=== PATIENT | male | born 1955 | race Caucasian/White ===

== ENCOUNTER 2016-10-05 08:18 | Emergency (ER) | payer BC ==
[2016-10-05 08:41] VITALS: BP 108/69
--- NOTE | 2016-10-05 08:44 | UC ---
Minor Trauma HPI - History of Current Complaint Chief Complaint: UCUpperExtremity Stated Complaint: LEFT HAND/RIGHT LEG INJURY FROM FALL 10/04 Time Seen by Provider: 10/05/16 08:37 Hx Obtained From: Patient Onset/Duration: Sudden Onset - fell off a step ladder trimming a tree. 4:30 PM yesterday, Still Present Onset Of Pain: Immediate Severity Initially: Moderate Severity Currently: Moderate Mechanism Of Injury: Blunt Trauma, Fall From Height Of: - 3 feet on a ladder Aggravating Factor(s): Movement Alleviating Factor(s): Nothing Associated Signs And Symptoms: Negative: Loss Of Consciousness, Ecchymosis, Swelling - Risk Factors Penetrating Injury Risk Factors: Negative Compartment Syndrome Risk Factors: Pain - Allergies/Home Medications Allergies/Adverse Reactions: Allergies Allergy/AdvReac Type Severity Reaction Status Date / Time No Known Allergies Allergy Verified 10/05/16 08:28 PMH/Surg Hx/FS Hx/Imm Hx Endocrine History: Dyslipidemia Cardiovascular History: Hypertension - Surgical History Surgical History: Yes Surgery Procedure, Year, and Place: compound fx left arm. rotator cuff right shoulder. hernia repair. tonsillectomy - Family History Known Family History: Positive: Hypertension Negative: Cardiac Disease, Diabetes - Social History Occupation: Employed Full-time Lives: With Family Alcohol Use: Occasionally Alcohol Amount: few days a week Substance Use Type: None Smoking Status (MU): Never Smoked Tobacco - Immunization History Most Recent Tetanus Shot: <10 years Review of Systems Musculoskeletal: Arthralgia - left thumb All Other Systems Reviewed And Are Negative: Yes Physical Exam Triage Information Reviewed: Yes Appearance: Well-Appearing, No Pain Distress, Well-Nourished Vital Signs: Initial Vital Signs Temp 97.6 F 10/05/16 08:29 Pulse 60 10/05/16 08:29 Resp 18 10/05/16 08:29 BP 108/69 10/05/16 08:29 Pulse Ox 99 10/05/16 08:29 Vital Signs Reviewed: Yes Eyes: Positive: Conjunctiva Clear Neck exam: Normal Respiratory Exam: Normal Cardiovascular Exam: Normal Musculoskeletal: Positive: ROM Limited @ - left MCP with tenderness. Neurological Exam: Normal Psychological Exam: Normal Skin: Positive: Other - abrasion on the right lateral lower leg and right anterior neck Minor Trauma Course/Dx - Differential Dx/Diagnosis Differential Diagnosis/HQI/PQRI: Abrasion(s), Contusion(s), Sprain Provider Diagnoses: Left thumb sprain. Abrasion Discharge - Discharge Plan Condition: Stable Disposition: HOME Patient Education Materials: Finger Sprain (ED), Abrasion (ED)
--- NOTE | 2016-10-05 09:33 | RAD ---
Indication: Thumb injury. 3 views of left thumb demonstrates no fracture. There may be some degenerative changes of the distal interphalangeal joint. IMPRESSION: No fracture of the thumb is present.
== END 2016-10-05 09:13 | disposition home or self-care (01) ==
LOC: UCCORT 08:18
DX: S10.91XA Abrasion of unspecified part of neck, initial encounter (principal); S63.602A Unspecified sprain of left thumb, initial encounter; W11.XXXA Fall on and from ladder, initial encounter; Y93.9 Activity, unspecified; Y92.9 Unspecified place or not applicable; Y99.9 Unspecified external cause status; E78.5 Hyperlipidemia, unspecified; I10 Essential (primary) hypertension
CPT/HCPCS: 99211; G0463

== ENCOUNTER 2017-03-08 12:25 | Emergency (ER) | payer BC ==
[2017-03-08 13:02] VITALS: BP 111/75
--- NOTE | 2017-03-08 14:04 | UC ---
Skin Complaint HPI - HPI Summary HPI Summary: boil noted in left groin area for a few days. tender to touch but no insect bite or injury to that area. no drainage present at this time. - History of Current Complaint Chief Complaint: UCSkin Time Seen by Provider: 03/08/17 13:57 Stated Complaint: SKIN COMPLAINT ON HIP Hx Obtained From: Patient Onset/Duration: Sudden Onset, Lasting Days Onset Severity: Mild Current Severity: Mild Location: Other - left groin Aggravating Factor(s): Clothing Alleviating Factor(s): Nothing Associated Signs & Symptoms: Positive: Negative - ? insect bite doesnt know/ remember being bit - Allergy/Home Medications Allergies/Adverse Reactions: Allergies Allergy/AdvReac Type Severity Reaction Status Date / Time No Known Allergies Allergy Verified 03/08/17 12:55 Review of Systems Constitutional: Negative Skin: Other - boil in left groin Eyes: Negative ENT: Negative Respiratory: Negative Cardiovascular: Negative Gastrointestinal: Negative Genitourinary: Negative Is Patient Immunocompromised?: No All Other Systems Reviewed And Are Negative: Yes PMH/Surg Hx/FS Hx/Imm Hx Previously Healthy: Yes Endocrine History: Dyslipidemia Cardiovascular History: Hypertension - Surgical History Surgical History: Yes Surgery Procedure, Year, and Place: compoun fx left arm. rotator cuff left shoulder. hernia repair. tonsillectomy - Family History Known Family History: Positive: Hypertension Negative: Cardiac Disease, Diabetes - Social History Alcohol Use: Occasionally Alcohol Amount: few days a week Substance Use Type: None Smoking Status (MU): Never Smoked Tobacco - Immunization History Most Recent Influenza Vaccination: 2017 Most Recent Tetanus Shot: <10 years Physical Exam Triage Information Reviewed: Yes Appearance: Well-Appearing Vital Signs: Initial Vital Signs Temp 97.8 F 03/08/17 12:56 Pulse 69 03/08/17 12:56 Resp 16 03/08/17 12:56 BP 111/75 03/08/17 12:56 Pulse Ox 96 03/08/17 12:56 Vital Signs Reviewed: Yes Respiratory Exam: Normal Skin Exam: Other - left groin boil present tender to touch no drainage present, redness around area but no warmth to skin there Course/Dx - Course Course Of Treatment: warm compress to left groin prn - to help bring boil to a head/ inflammation. monitor area and if boil gets bigger - starts draining, area getting infected - discussed s/sx's. f/u pcp in 1 week if symptoms not resolving - Diagnoses Provider Diagnoses: boil Discharge - Discharge Plan Condition: Good Disposition: HOME Patient Education Materials: Furunculosis and Carbunculosis (ED) Referrals: Sherif Winter MD [Primary Care Provider] - 1 Week
== END 2017-03-08 14:25 | disposition home or self-care (01) ==
LOC: UCCORT 12:25
DX: L02.224 Furuncle of groin (principal); I10 Essential (primary) hypertension; E78.5 Hyperlipidemia, unspecified
CPT/HCPCS: 99211; G0463